=== PATIENT | female | born 1990 | race Caucasian/White ===

== ENCOUNTER 2017-05-29 17:31 | Emergency (ER) | payer OTHER ==
[~2017-05-29] VITALS: Ht 170.2 cm; Wt 104.9 kg
[2017-05-29 17:38] VITALS: BP 129/86
== END 2017-05-29 19:13 | disposition home or self-care (01) ==
LOC: ED 17:31
DX: M26.603 Bilateral temporomandibular joint disorder, unspecified (principal); J30.9 Allergic rhinitis, unspecified; Z90.710 Acquired absence of both cervix and uterus

== ENCOUNTER 2018-01-03 22:12 | Emergency (ER) | payer OTHER ==
[~2018-01-03] VITALS: Ht 170.2 cm; Wt 105.2 kg
[2018-01-03 22:52] VITALS: Ht 170.2 cm; Wt 105.2 kg
[2018-01-04] VITALS: BP 124/78
== END 2018-01-04 | disposition home or self-care (01) ==
LOC: ED 22:12
DX: L30.4 Erythema intertrigo (principal)

== ENCOUNTER 2018-01-30 11:38 | Emergency (ER) | payer OTHER ==
[~2018-01-30] VITALS: Ht 170.2 cm; Wt 102.1 kg
[2018-01-30 11:42] VITALS: Ht 170.2 cm; Wt 102.1 kg
[2018-01-30 13:22] VITALS: BP 127/93
== END 2018-01-30 13:22 | disposition home or self-care (01) ==
LOC: ED 11:38
DX: S90.31XA Contusion of right foot, initial encounter (principal); Z90.710 Acquired absence of both cervix and uterus; W21.02XA Struck by soccer ball, initial encounter; Y93.66 Activity, soccer; Y92.89 Other specified places as the place of occurrence of the external cause; Y99.8 Other external cause status
CPT/HCPCS: Q0092

== ENCOUNTER 2018-04-16 17:11 | Emergency (ER) | payer OTHER ==
[~2018-04-16] VITALS: Ht 170.2 cm; Wt 105.7 kg
[2018-04-16 17:22] VITALS: Ht 170.2 cm; Wt 105.7 kg
[2018-04-16 18:00] VITALS: BP 124/68
== END 2018-04-16 18:00 | disposition home or self-care (01) ==
LOC: ED 17:11
DX: S90.561A Insect bite (nonvenomous), right ankle, initial encounter (principal); L08.9 Local infection of the skin and subcutaneous tissue, unspecified; M35.00 Sjogren syndrome, unspecified; Z90.712 Acquired absence of cervix with remaining uterus; Z85.41 Personal history of malignant neoplasm of cervix uteri; W57.XXXA Bitten or stung by nonvenomous insect and other nonvenomous arthropods, initial encounter; Y93.89 Activity, other specified; Y92.89 Other specified places as the place of occurrence of the external cause; Y99.8 Other external cause status

== ENCOUNTER 2018-12-07 09:01 | Emergency (ER) | payer OTHER ==
[~2018-12-07] VITALS: Ht 170.2 cm; Wt 106.6 kg
[2018-12-07 09:05] VITALS: Ht 170.2 cm; Wt 106.6 kg
[2018-12-07 10:12] LABS: BASOPHIL % 0.1 % (0-2); PLATELET COUNT 315 x10^3mcL (130-400); RED CELL DISTRIBUTION WIDTH 14.4 % (11.5-14.5)
[2018-12-07 10:21] LABS: CALCIUM 9.5 mg/dL (8.5-10.1); CARBON DIOXIDE 22.6 mmol/L (21-32); CHLORIDE SERUM 106 mmol/L (98-107); CREATININE SERUM 0.8 mg/dL (0.6-1.0); GFR1 > 60 mL/min; GLUCOSE SERUM 123 mg/dL (74-106); POTASSIUM SERUM 3.4 mmol/L (3.5-5.1); SODIUM SERUM 144 mmol/L (136-145)
[2018-12-07 10:26] LABS: ALBUMIN 3.6 g/dL (3.4-5.0); ALKALINE PHOSPHATASE 76 U/L (46-116); ALT/SGPT 63 U/L (14-59); AST/SGOT 37 U/L (15-37); BILIRUBIN TOTAL 1.08 mg/dL (0.20-1.00); CHOLESTEROL 161 mg/dL (<200); HDL CHOLESTEROL 42 mg/dL (40-60); PHOSPHOROUS 1.6 mg/dL (2.5-4.9); TOTAL PROTEIN, SERUM 7.9 g/dL (6.4-8.2)
[2018-12-07 11:17] VITALS: BP 95/62
== END 2018-12-07 11:17 | disposition home or self-care (01) ==
LOC: ED 09:01
PROVIDERS: Emergency Medicine
DX: J20.9 Acute bronchitis, unspecified (principal); M35.00 Sjogren syndrome, unspecified; Z90.710 Acquired absence of both cervix and uterus; Z85.41 Personal history of malignant neoplasm of cervix uteri
CPT/HCPCS: J1885; J2060; J7620

== ENCOUNTER 2019-08-08 17:27 | Emergency (ER) | payer OTHER ==
[~2019-08-08] VITALS: Ht 170.2 cm; Wt 111.6 kg
[2019-08-08 17:49] VITALS: Ht 170.2 cm; Wt 111.6 kg
[2019-08-08 19:46] VITALS: BP 124/92
== END 2019-08-08 19:46 | disposition home or self-care (01) ==
LOC: ED 17:27
DX: M54.2 Cervicalgia (principal); F17.210 Nicotine dependence, cigarettes, uncomplicated; M25.511 Pain in right shoulder; M25.512 Pain in left shoulder; Z90.710 Acquired absence of both cervix and uterus
CPT/HCPCS: 99406; J1885